=== PATIENT | male | born 1945 | race Caucasian/White ===

== ENCOUNTER 2017-12-08 22:28 | Inpatient (IN) | payer OTHER ==
[~2017-12-08] VITALS: Ht 172.7 cm; Wt 87.5 kg
[~2017-12-08 22:28] MED LIST: COUMADIN2.5 MG PO; COUMADIN5 MG PO; Flagyl PO; LOMOTIL TABLET1 EACH PO; Levaquin PO; PENTASA250 MG PO; Questran PO; predniSONE PO
[2017-12-08 22:55] LABS: BASOPHIL (%) 0.2 % (0-1); EOSINOPHIL (%) 0.1 % (0-5); HEMATOCRIT 15.8 % (38.0-50.0); HEMOGLOBIN 4.9 G/DL (12.5-16.6); IMMATURE GRANULOCYTE (%) 0.9 % (0.0-0.7); LYMPHOCYTE (%) 3.8 % (15-42); LYMPHOCYTE COUNT 0.5 K/uL (1.0-2.8); MCH 29.2 PG (29.0-34.0); MONOCYTE (%) 6.7 % (3-12); MONOCYTE COUNT 0.8 K/uL (0-0.8); NEUTROPHIL (%) 88.3 % (45-76); NRBC (%) 1.4 /100 WBC (0-0); PLATELET COUNT 258 K/uL (156-360); RBC DIS.WIDTH-CV 16.6 % (11.8-14.6); RBC DIS.WIDTH-SD 55.2 % (39-53); RED BLOOD COUNT 1.68 M/uL (4.00-5.50); WHITE BLOOD COUNT 12.5 K/uL (4.1-10.2)
[2017-12-08 22:59] LABS: CHLORIDE 110 mEq/L (99-109); POTASSIUM 4.1 mEq/L (3.7-5.4); SODIUM 143 mEq/L (136-147)
[2017-12-08 23:01] LABS: GLUCOSE 178 mg/dL (70-99)
[2017-12-08 23:02] LABS: TOTAL PROTEIN 5.3 g/dL (6.4-8.3)
[2017-12-08 23:03] LABS: TOTAL BILIRUBIN 0.5 mg/dL (0.0-1.0)
[2017-12-08 23:05] LABS: ALKALINE PHOSPHATASE 67 IU/L (3-129); CREATININE 2.3 mg/dL (0.6-1.3); GFR ESTIMATE (CALCULATED) 30 mL/min/ (58.99-99999)
[2017-12-08 23:06] LABS: UREA NITROGEN (BUN) 45 mg/dL (9-23)
[2017-12-08 23:07] LABS: AST (GOT) 12 IU/L (2-34); PTT 114.5 SEC (25-37)
[2017-12-08 23:08] LABS: ALT (GPT) 11 IU/L (3-49)
[2017-12-08 23:10] LABS: TROP-I INTERPRETATION NEGATIVE; TROPONIN-I < 0.01 ng/mL (0.0-0.30)
[2017-12-08] MEDS ORDERED: JANTOVEN5 MG PO (23:32)
[2017-12-08] MEDS ORDERED: SULFASALAZINE500 MG PO (23:33)
[2017-12-08] MEDS ORDERED: ALEVE220 MG PO (23:34)
[2017-12-08 23:52] VITALS: BP 79/53
[2017-12-09] VITALS (48 sets, daily range): BP systolic 84–143; BP diastolic 47–82
[2017-12-09 08:01] LABS: INTER. NORMALIZED RATIO 1.2
[2017-12-09 08:05] LABS: PTT 26.8 SEC (25-37)
[2017-12-09 08:09] LABS: CHLORIDE 114 MEQ/L (99-109); CREATININE 2.5 MG/DL (0.6-1.3); GFR ESTIMATE (CALCULATED) 27 mL/min/ (58.99-99999); GLUCOSE 136 mg/dL (70-99); POTASSIUM 4.7 MEQ/L (3.7-5.4); SODIUM 146 MEQ/L (136-147); UREA NITROGEN (BUN) 42 mg/dL (9-23)
[2017-12-09 08:37] LABS: HEMATOCRIT 25.9 % (38.0-50.0); MCH 28.2 PG (29.0-34.0); MCHC 32.4 G/DL (30.0-36.0); NRBC (%) 1.1 /100 WBC (0-0); PLAT.SUFFICIENCY DECREASED; RBC DIS.WIDTH-CV 15.2 % (11.8-14.6); RBC DIS.WIDTH-SD 47.3 % (39-53); RED BLOOD COUNT 2.98 M/uL (4.00-5.50); WHITE BLOOD COUNT 7.2 K/uL (4.1-10.2)
[2017-12-09 08:38] LABS: HEMOGLOBIN 8.4 G/DL (12.5-16.6); MCV 86.9 FL (86-99); PLATELET COUNT 117 K/uL (156-360)
[2017-12-09 08:43] LABS: HEMATOCRIT 25.9 % (38.0-50.0); HEMOGLOBIN 8.4 G/DL (12.5-16.6); MCV 86.9 FL (86-99)
[2017-12-09 08:44] LABS: MCV 86.9 FL (86-99)
[2017-12-09 11:53] LABS: HEMOGLOBIN 8.1 G/DL (12.5-16.6); MCH 27.9 PG (29.0-34.0); MCHC 32.4 G/DL (30.0-36.0); MCV 86.2 FL (86-99); NRBC (%) 1.9 /100 WBC (0-0); PLATELET COUNT 95 K/uL (156-360); RBC DIS.WIDTH-CV 15.6 % (11.8-14.6); RBC DIS.WIDTH-SD 48.3 % (39-53); WHITE BLOOD COUNT 5.4 K/uL (4.1-10.2)
[2017-12-09 12:20] LABS: CHLORIDE 114 MEQ/L (99-109); CREATININE 2.4 MG/DL (0.6-1.3); GFR ESTIMATE (CALCULATED) 28 mL/min/ (58.99-99999); GLUCOSE 121 mg/dL (70-99); MAGNESIUM 1.9 mg/dl (1.3-2.7); PHOSPHORUS 4.8 mg/dL (2.5-4.9); POTASSIUM 4.8 MEQ/L (3.7-5.4); SODIUM 146 MEQ/L (136-147); UREA NITROGEN (BUN) 43 mg/dL (9-23)
[2017-12-09 16:03] LABS: HEMATOCRIT 25.7 % (38.0-50.0); HEMOGLOBIN 8.4 G/DL (12.5-16.6); MCV 86.8 FL (86-99)
[2017-12-09 20:54] LABS: HEMATOCRIT 26.8 % (38.0-50.0); HEMOGLOBIN 8.6 G/DL (12.5-16.6); MCV 87.9 FL (86-99)
[2017-12-10] VITALS (13 sets, daily range): BP systolic 103–151; BP diastolic 54–96
[2017-12-10 00:30] LABS: HEMATOCRIT 24.1 % (38.0-50.0); HEMOGLOBIN 8.1 G/DL (12.5-16.6)
[2017-12-10 05:45] LABS: BASOPHIL (%) 0.5 % (0-1); EOSINOPHIL (%) 1.3 % (0-5); EOSINOPHIL COUNT 0.1 K/uL (0-0.3); HEMOGLOBIN 7.8 G/DL (12.5-16.6); LYMPHOCYTE (%) 7.6 % (15-42); LYMPHOCYTE COUNT 0.3 K/uL (1.0-2.8); MCH 28.7 PG (29.0-34.0); MCHC 32.5 G/DL (30.0-36.0); MCV 88.2 FL (86-99); MONOCYTE (%) 13.1 % (3-12); MONOCYTE COUNT 0.5 K/uL (0-0.8); NEUTROPHIL (%) 74.5 % (45-76); NRBC (%) 2.3 /100 WBC (0-0); PLATELET COUNT 103 K/uL (156-360); RBC DIS.WIDTH-CV 16.4 % (11.8-14.6); RBC DIS.WIDTH-SD 52.2 % (39-53); RED BLOOD COUNT 2.72 M/uL (4.00-5.50)
[2017-12-10 08:26] LABS: ALBUMIN 2.8 g/dL (3.2-4.8)
[2017-12-10 08:27] LABS: CHLORIDE 116 mEq/L (99-109); POTASSIUM 4.2 mEq/L (3.7-5.4); SODIUM 145 mEq/L (136-147)
[2017-12-10 08:30] LABS: GLUCOSE 82 mg/dL (70-99)
[2017-12-10 08:32] LABS: GFR ESTIMATE (CALCULATED) 45 mL/min/ (58.99-99999); PHOSPHORUS 2.5 mg/dL (2.5-4.9)
[2017-12-10 08:33] LABS: UREA NITROGEN (BUN) 36 mg/dL (9-23)
[2017-12-10 08:34] LABS: CREATININE 1.6 mg/dL (0.6-1.3)
[2017-12-11 07:10] LABS: BASOPHIL (%) 0.9 % (0-1); EOSINOPHIL (%) 1.7 % (0-5); EOSINOPHIL COUNT 0.1 K/uL (0-0.3); HEMOGLOBIN 8.4 G/DL (12.5-16.6); IMMATURE GRANULOCYTE (%) 3.4 % (0.0-0.7); LYMPHOCYTE COUNT 0.3 K/uL (1.0-2.8); MCH 27.7 PG (29.0-34.0); MCHC 31.1 G/DL (30.0-36.0); MCV 89.1 FL (86-99); MONOCYTE (%) 9.9 % (3-12); MONOCYTE COUNT 0.5 K/uL (0-0.8); NEUTROPHIL (%) 78.1 % (45-76); NEUTROPHIL COUNT 3.6 K/uL (1.8-6.4); NRBC (%) 1.3 /100 WBC (0-0); PLATELET COUNT 118 K/uL (156-360); RBC DIS.WIDTH-CV 15.9 % (11.8-14.6); RBC DIS.WIDTH-SD 51.1 % (39-53); RED BLOOD COUNT 3.03 M/uL (4.00-5.50); WHITE BLOOD COUNT 4.7 K/uL (4.1-10.2)
[2017-12-11 07:35] LABS: ALBUMIN 2.8 G/DL (3.2-4.8); ALKALINE PHOSPHATASE 55 IU/L (3-129); ALT (GPT) 11 IU/L (3-49); AST (GOT) 19 IU/L (2-34); CHLORIDE 114 MEQ/L (99-109); CREATININE 1.3 MG/DL (0.6-1.3); CREATININE 1.4 MG/DL (0.6-1.3); GFR ESTIMATE (CALCULATED) 53 mL/min/ (58.99-99999); GFR ESTIMATE (CALCULATED) 58 mL/min/ (58.99-99999); GLUCOSE 90 mg/dL (70-99); GLUCOSE 91 mg/dL (70-99); POTASSIUM 4.1 MEQ/L (3.7-5.4); SODIUM 146 MEQ/L (136-147); TOTAL BILIRUBIN 0.9 MG/DL (0.0-1.0); TOTAL PROTEIN 4.6 G/DL (6.4-8.3); UREA NITROGEN (BUN) 25 mg/dL (9-23)
[2017-12-11 08:22] VITALS: BP 170/88
[2017-12-11 16:18] VITALS: BP 149/74
[2017-12-11 17:53] LABS: C DIFF TOXIN NEGATIVE (NEGATIVE)
[2017-12-11 23:08] VITALS: BP 132/62
[2017-12-12 06:43] LABS: BASOPHIL (%) 0.9 % (0-1); EOSINOPHIL (%) 2.1 % (0-5); EOSINOPHIL COUNT 0.1 K/uL (0-0.3); HEMATOCRIT 28.9 % (38.0-50.0); HEMOGLOBIN 9.1 G/DL (12.5-16.6); LYMPHOCYTE (%) 10.1 % (15-42); LYMPHOCYTE COUNT 0.4 K/uL (1.0-2.8); MCH 27.9 PG (29.0-34.0); MCHC 31.5 G/DL (30.0-36.0); MCV 88.7 FL (86-99); MONOCYTE (%) 11.9 % (3-12); MONOCYTE COUNT 0.5 K/uL (0-0.8); NEUTROPHIL COUNT 3.1 K/uL (1.8-6.4); NRBC (%) 1.6 /100 WBC (0-0); PLATELET COUNT 134 K/uL (156-360); RBC DIS.WIDTH-CV 16.1 % (11.8-14.6); RBC DIS.WIDTH-SD 49.7 % (39-53); RED BLOOD COUNT 3.26 M/uL (4.00-5.50); WHITE BLOOD COUNT 4.3 K/uL (4.1-10.2)
[2017-12-12 07:04] LABS: CHLORIDE 110 MEQ/L (99-109); CREATININE 1.5 MG/DL (0.6-1.3); GFR ESTIMATE (CALCULATED) 49 mL/min/ (58.99-99999); GLUCOSE 96 mg/dL (70-99); POTASSIUM 4.2 MEQ/L (3.7-5.4); SODIUM 144 MEQ/L (136-147); UREA NITROGEN (BUN) 19 mg/dL (9-23)
[2017-12-12 07:26] VITALS: BP 134/67
[2017-12-12 13:21] LABS: CREATININE 1.5 MG/DL (0.6-1.3)
[2017-12-12 16:53] VITALS: BP 160/78
[2017-12-12 18:34] LABS: HEMATOCRIT 28.7 % (38.0-50.0); HEMOGLOBIN 9.3 G/DL (12.5-16.6); MCV 89.4 FL (86-99)
[2017-12-13 00:20] VITALS: BP 131/63
[2017-12-13 05:53] LABS: BASOPHIL (%) 0.3 % (0-1); EOSINOPHIL (%) 0 % (0-5); HEMATOCRIT 28.9 % (38.0-50.0); IMMATURE GRANULOCYTE (%) 2.4 % (0.0-0.7); LYMPHOCYTE (%) 4.7 % (15-42); LYMPHOCYTE COUNT 0.2 K/uL (1.0-2.8); MCHC 31.1 G/DL (30.0-36.0); MONOCYTE (%) 2.6 % (3-12); MONOCYTE COUNT 0.1 K/uL (0-0.8); NEUTROPHIL COUNT 3.1 K/uL (1.8-6.4); NRBC (%) 0.9 /100 WBC (0-0); RBC DIS.WIDTH-CV 15.9 % (11.8-14.6); RBC DIS.WIDTH-SD 49.3 % (39-53); RED BLOOD COUNT 3.21 M/uL (4.00-5.50); WHITE BLOOD COUNT 3.4 K/uL (4.1-10.2)
[2017-12-13 06:34] LABS: CHLORIDE 111 MEQ/L (99-109); CREATININE 1.5 MG/DL (0.6-1.3); GFR ESTIMATE (CALCULATED) 49 mL/min/ (58.99-99999); SODIUM 142 MEQ/L (136-147); UREA NITROGEN (BUN) 21 mg/dL (9-23)
[2017-12-13 06:38] LABS: PLAT.SUFFICIENCY DECREASED; PLATELET COUNT 98 K/uL (156-360)
[2017-12-13 06:39] LABS: GLUCOSE 186 mg/dL (70-99); POTASSIUM 5.1 MEQ/L (3.7-5.4)
[2017-12-13 07:30] VITALS: BP 156/72
[2017-12-13 15:35] VITALS: BP 142/65
[2017-12-14] VITALS: BP 134/66
[2017-12-14 07:13] VITALS: BP 142/72
[2017-12-14 09:56] LABS: HEMATOCRIT 29.3 % (38.0-50.0); HEMOGLOBIN 9.1 G/DL (12.5-16.6); MCH 28.5 PG (29.0-34.0); MCHC 31.1 G/DL (30.0-36.0); MCV 91.8 FL (86-99); NRBC (%) 1.8 /100 WBC (0-0); RBC DIS.WIDTH-CV 17.2 % (11.8-14.6); RED BLOOD COUNT 3.19 M/uL (4.00-5.50); WHITE BLOOD COUNT 5.7 K/uL (4.1-10.2)
[2017-12-14 10:05] LABS: PLATELET COUNT 149 K/uL (156-360)
[2017-12-14 16:23] VITALS: BP 144/67
[2017-12-15 00:28] VITALS: BP 136/71
[2017-12-15 08:24] VITALS: BP 137/62
[2017-12-15 16:27] VITALS: BP 119/61
[2017-12-16] VITALS: BP 145/71
[2017-12-16 06:55] VITALS: BP 135/62
[2017-12-16 09:52] LABS: HEMATOCRIT 30.9 % (38.0-50.0); HEMOGLOBIN 9.7 G/DL (12.5-16.6); MCH 28.8 PG (29.0-34.0); MCHC 31.4 G/DL (30.0-36.0); MCV 91.7 FL (86-99); NRBC (%) 1.2 /100 WBC (0-0); PLATELET COUNT 146 K/uL (156-360); RBC DIS.WIDTH-CV 17.9 % (11.8-14.6); RBC DIS.WIDTH-SD 53.2 % (39-53); RED BLOOD COUNT 3.37 M/uL (4.00-5.50); WHITE BLOOD COUNT 5.8 K/uL (4.1-10.2)
[2017-12-16 10:21] LABS: CHLORIDE 109 MEQ/L (99-109); CREATININE 1.1 MG/DL (0.6-1.3); GFR ESTIMATE (CALCULATED) > 59 mL/min/ (58.99-99999); GLUCOSE 127 mg/dL (70-99); POTASSIUM 3.9 MEQ/L (3.7-5.4); SODIUM 140 MEQ/L (136-147); UREA NITROGEN (BUN) 17 mg/dL (9-23)
[2017-12-16 15:55] VITALS: BP 157/74
[2017-12-16 23:15] VITALS: BP 118/67
[2017-12-17 06:47] VITALS: BP 114/64
[2017-12-17] MEDS ORDERED: PANTOPRAZOLE SO40 MG PO (11:46)
[2017-12-17] MEDS ORDERED: PREDNISONE20 MG PO (11:46)
== END 2017-12-17 13:35 | DRG 813 ==
LOC: EME → EDBD 22:28 → EME 22:28 → 4WEST 23:38 → 5EAST 23:38 → EDOF 23:38 → ENRESERV 23:40 → 4WEST 12-09 00:42 → 5EAST 12-10 11:18 → ENRESERV 12-10 11:21 → 4WEST 12-10 11:23 → ENRESERV 12-10 12:11 → 5EAST 12-10 15:05
PROVIDERS: Emergency Medicine; Hospitalist; Internal Medicine; Internal Medicine Critical Care Medicine; Internal Medicine Gastroenterology; Specialist; Student in an Organized Health Care Education/Training Program; Surgery
PROC: 06HM33Z Insertion of Infusion Device into Right Femoral Vein, Percutaneous Approach (ICD-10-PCS; 2017-12-08)
PROC: 0RSKXZZ Reposition Left Shoulder Joint, External Approach (ICD-10-PCS; principal; 2017-12-09)
PROC: 0DB68ZX Excision of Stomach, Via Natural or Artificial Opening Endoscopic, Diagnostic (ICD-10-PCS; principal; 2017-12-09)
PROC: 30233N1 Transfusion of Nonautologous Red Blood Cells into Peripheral Vein, Percutaneous Approach (ICD-10-PCS; principal; 2017-12-09)
PROC: 30233K1 Transfusion of Nonautologous Frozen Plasma into Peripheral Vein, Percutaneous Approach (ICD-10-PCS; principal; 2017-12-09)
DX: D68.32 Hemorrhagic disorder due to extrinsic circulating anticoagulants (principal); K26.4 Chronic or unspecified duodenal ulcer with hemorrhage; T45.515A Adverse effect of anticoagulants, initial encounter; R57.8 Other shock; N17.9 Acute kidney failure, unspecified; E87.2 Acidosis; D62 Acute posthemorrhagic anemia; M25.062 Hemarthrosis, left knee; K50.90 Crohn's disease, unspecified, without complications; D69.6 Thrombocytopenia, unspecified; K92.1 Melena; I12.9 Hypertensive chronic kidney disease with stage 1 through stage 4 chronic kidney disease, or unspecified chronic kidney disease; N18.9 Chronic kidney disease, unspecified; R41.0 Disorientation, unspecified; S43.015A Anterior dislocation of left humerus, initial encounter; S83.005A Unspecified dislocation of left patella, initial encounter; S70.12XA Contusion of left thigh, initial encounter; W19.XXXA Unspecified fall, initial encounter; M17.12 Unilateral primary osteoarthritis, left knee; K25.9 Gastric ulcer, unspecified as acute or chronic, without hemorrhage or perforation; K44.9 Diaphragmatic hernia without obstruction or gangrene; R29.6 Repeated falls; Z60.2 Problems related to living alone; Y92.009 Unspecified place in unspecified non-institutional (private) residence as the place of occurrence of the external cause; Z91.81 History of falling; Z90.49 Acquired absence of other specified parts of digestive tract; Z95.828 Presence of other vascular implants and grafts; Z86.718 Personal history of other venous thrombosis and embolism; Z86.19 Personal history of other infectious and parasitic diseases
CPT/HCPCS: 70450; 71045; 72170; 73020; 73030; 73560; 74176; 80047; 80048; 80048 91; 80053; 80069; 82565; 83605; 83735; 84100; 84484; 85014; 85018; 85025; 85027; 85610; 85730; 86850; 86900; 86901; 86920; 87493; 87641; 88305; 88342 TC; 93005; 94799; 97530 GP; 99281; 99285; C1751; C9113; C9132; J0610; J0692; J2354; J2930; J3010; J3430; J7030; J7050; J7512; P9016; P9017

== ENCOUNTER 2018-04-20 17:54 | Emergency (ER) | payer OTHER ==
[~2018-04-20] VITALS: Ht 172.7 cm; Wt 93.1 kg
[~2018-04-20 17:54] MED LIST changes: +ALEVE220 MG PO; +JANTOVEN5 MG PO; +PANTOPRAZOLE SO40 MG PO; +PREDNISONE20 MG PO; +SULFASALAZINE500 MG PO
[2018-04-20 19:17] LABS: BASOPHIL (%) 0.4 % (0-1); EOSINOPHIL (%) 2.6 % (0-5); EOSINOPHIL COUNT 0.1 K/uL (0-0.3); HEMATOCRIT 34.7 % (38.0-50.0); HEMOGLOBIN 11.1 G/DL (12.5-16.6); IMMATURE GRANULOCYTE (%) 0.8 % (0.0-0.7); LYMPHOCYTE COUNT 0.5 K/uL (1.0-2.8); MCH 30.6 PG (29.0-34.0); MCV 95.6 FL (86-99); MONOCYTE (%) 10.6 % (3-12); MONOCYTE COUNT 0.5 K/uL (0-0.8); NEUTROPHIL (%) 75.6 % (45-76); NEUTROPHIL COUNT 3.9 K/uL (1.8-6.4); PLATELET COUNT 240 K/uL (156-360); RBC DIS.WIDTH-CV 14.1 % (11.8-14.6); RBC DIS.WIDTH-SD 48.9 % (39-53); RED BLOOD COUNT 3.63 M/uL (4.00-5.50); WHITE BLOOD COUNT 5.1 K/uL (4.1-10.2)
[2018-04-20 19:25] LABS: PTT 61.6 SEC (25-37)
[2018-04-20 19:27] LABS: CHLORIDE 110 mEq/L (99-109); POTASSIUM 4.3 mEq/L (3.7-5.4); SODIUM 144 mEq/L (136-147)
[2018-04-20 19:28] LABS: GLUCOSE 102 mg/dL (70-99)
[2018-04-20 19:32] LABS: CREATININE 1.5 mg/dL (0.6-1.3); GFR ESTIMATE (CALCULATED) 49 mL/min/ (58.99-99999)
[2018-04-20 19:33] LABS: UREA NITROGEN (BUN) 20 mg/dL (9-23)
[2018-04-20 19:36] LABS: INTER. NORMALIZED RATIO 6.8
[2018-04-20 20:57] VITALS: BP 141/82
== END 2018-04-20 20:58 | disposition home or self-care (01) ==
LOC: EME 17:54
PROVIDERS: Emergency Medicine
DX: R79.1 Abnormal coagulation profile (principal); F41.9 Anxiety disorder, unspecified; K50.90 Crohn's disease, unspecified, without complications; Z86.718 Personal history of other venous thrombosis and embolism; Z79.01 Long term (current) use of anticoagulants
CPT/HCPCS: 80048; 85025; 85610; 85730; 86850; 86900; 86901; 99281; 99284